=== PATIENT | female | born 1995 | race Two or more races ===

== ENCOUNTER 2023-04-20 14:29 | Outpatient (REF) | payer OTHER, SELFPAY ==
[2023-04-20 15:11] LABS: MANUAL DIFF FLAG NO
[2023-04-20 15:47] LABS: Basophils Percent Auto 0.4 % (0-2); Eosinophils Absolute Auto 0.2 X10*3/uL (0.0-0.4); Eosinophils Percent Auto 2.8 % (0-4); Hematocrit 37.7 % (37.0-47.0); Hemoglobin 12.2 g/dl (12.0-16.0); Imm Gran Abs Auto 0.02 X10*3/uL (0.00-0.03); Imm Gran Pct Auto 0.2 % (0.0-0.4); Lymphocytes Absolute Auto 3.9 X10*3/uL (1.2-4.9); Lymphocytes Percent Auto 46.5 % (20-40); Mean Corpuscular HGB Conc 32.4 g/dl (31.0-35.0); Mean Corpuscular Hemoglobin 28.3 pg (27.0-33.0); Mean Corpuscular Volume 87.5 fL (80.0-98.0); Mean Platelet Volume 9.1 fL (9.4-12.3); Monocytes Absolute Auto 0.7 X10*3/uL (0.1-1.2); Monocytes Percent Auto 7.8 % (2-11); Neutrophils Absolute Auto 3.6 x10*3/uL (2.0-8.3); Neutrophils Percent Auto 42.3 % (45-73); Platelet Count 358 X10*3/uL (160-400); Red Blood Count 4.31 X10*6/uL (4.20-5.50); Red Cell Distribution Width 12.7 % (11.0-16.0); White Blood Count 8.4 X10*3/uL (4.8-10.8)
[2023-04-20 16:01] LABS: Alanine Aminotransferase 23 U/L (0-31); Albumin Level 4.4 g/dL (3.5-5.0); Alkaline Phosphatase 56 U/L (39-117); Anion Gap 15 (12-20); Aspartate Amino Transferase 17 U/L (5-31); Bilirubin Total 0.3 mg/dL (0.0-1.0); Blood Urea Nitrogen 18 mg/dL (9-16); Calcium 9.4 mg/dL (8.4-10.2); Carbon Dioxide 25 mmol/L (22-29); Chloride 104 mmol/L (96-108); Estimated Glomerular Filt Rate > 60; Glucose Random 74 mg/dL (60-115); Potassium 4.5 mmol/L (3.3-5.1); Sodium 139 mmol/L (135-145); Total Protein 8.1 g/dL (6.5-8.0)
[2023-04-20 16:08] LABS: Magnesium 2.2 mg/dL (1.6-2.6); Phosphorus 3.6 mg/dL (2.7-4.5)
[2023-04-20 16:16] LABS: Free T4 (Free Thyroxine) 0.95 ng/dL (0.71-1.85); Thyroid Stimulating Hormone 5.55 uIU/mL (0.32-4.0)
[2023-04-20 16:22] LABS: Vitamin B12 438 pg/mL (200-900)
[2023-04-20 17:18] LABS: Urine Pregnancy NEGATIVE (NEGATIVE)
[2023-04-20 17:19] LABS: Appearance Urine Cloudy; Color Urine Dark Yellow; Glucose Urine UA Negative (Negative); Leukocyte Esterase Urine Trace (Negative); Nitrite Urine Negative (Negative); PH 5.5 (5.0-9.0); Specific Gravity - Urine >= 1.030 (1.005-1.025); UMIC TRIGGER UA YES; UPreg QC Valid YES; Urine Blood Negative (Negative); Urine Ketones Trace mg/dL (Negative); Urine Protein Negative (Neg-Trace)
[2023-04-20 17:53] LABS: Hyaline Casts Urine 0-2 /LPF (0-2); WBC Urine 0-5 /HPF (0-5)
[2023-04-20 17:54] LABS: Bacteria Urine Trace (None Seen); RBC Urine 0-2 /HPF (0-2)
[2023-04-21 07:13] LABS: Syphilis Screen Nonreactive (Nonreactive)
[2023-04-21 07:25] LABS: HBS Num1 1.14 mIU/mL (0-7.99); HBc Num1 0.24 S/CO (0.00-0.79); HBsAGNum1 1.26 S/CO (0.00-0.99); HIV AB/AG Nonreactive (Nonreactive); Hepatitis B Core Antibody Nonreactive (Nonreactive); ~HepC Num1 0.17 S/CO (0.00-0.79); ~Hepatitis B Surface Antibody NONREACTIVE (Nonreactive); ~Hepatitis C Antibody Nonreactive (Nonreactive)
[2023-04-21 10:14] LABS: HBsAGNum2 Reactive; HBsAGNum3 Reactive
[2023-04-21 10:15] LABS: Hepatitis B Surface Antigen Retest CNFM (Negative)
[2023-04-24 12:59] LABS: HBsAG NON-REACTIVE
== END 2023-04-20 14:30 | disposition home or self-care (01) ==
LOC: HO.LAB 14:29
PROVIDERS: Visit Provider Psychiatry & Neurology Psychiatry
DX: Z11.4 Encounter for screening for human immunodeficiency virus [HIV] (principal); F33.2 Major depressive disorder, recurrent severe without psychotic features
CPT/HCPCS: 36415; 80053; 81001; 81025; 82607; 83735; 84100; 84439; 84443; 85025; 86704; 86706; 86780; 86803; 87340; 87389

== ENCOUNTER → 2023-04-23 10:39 | Outpatient (REF) | payer OTHER, SELFPAY ==
--- NOTE | 2023-04-23 10:44 | ECG_ITS ---
Test Reason : r/o arrhythmia Blood Pressure : / mmHG Vent. Rate : 047 BPM Atrial Rate : 047 BPM P-R Int : 140 ms QRS Dur : 086 ms QT Int : 518 ms P-R-T Axes : 025 073 054 degrees QTc Int : 458 ms Sinus bradycardia with sinus arrhythmia Otherwise normal ECG No previous ECGs available Referred By: Olga Chinchilla Electronically Signed By:AURORA CASTRO MD
== END ==
LOC: HO.CARD 10:39
PROVIDERS: Visit Provider Psychiatry & Neurology Psychiatry
DX: F33.2 Major depressive disorder, recurrent severe without psychotic features (principal)
CPT/HCPCS: 93005

== ENCOUNTER → 2023-04-23 10:44 | Outpatient (BNV) | payer OTHER, SELFPAY | PROVIDERS: Visit Provider Internal Medicine Cardiovascular Disease | DX: R00.1 Bradycardia, unspecified (principal) | CPT/HCPCS: 93010 ==

== ENCOUNTER 2023-04-30 08:00 | Outpatient (RCR) | payer OTHER, SELFPAY ==
[2023-04-17 12:22] VITALS: BP 99/69; PULSE 61; TEMP 36.7
[2023-04-17 12:28] VITALS: BMI 33.3
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
[2023-04-20 06:25] LABS: Amphetamine Screen Urine Not Detected (Not Detect); Barbiturates, Urine Not Detected (Not Detect); Benzodiazepines Screen Urine Not Detected (Not Detect); Cannabinoid Screen Urine POSITIVE (Not Detect); Cocaine Screen Urine POSITIVE (Not Detect); Fentanyl, urine Not Detected (Not Detect); Opiate Screen Urine Not Detected (Not Detect); Phencyclidine Screen Urine POSITIVE (Not Detect)
--- NOTE | 2023-04-20 12:14 | PC.ADMIT ---
Patient is a 27 year old female who was referred to [facility] by Ирина Wen [facility]. She reportely has had 2 inpatient level of cares in December and January 2023 d/t increased depression and anxiety with SI. Patient has a history of substance use including cocaine IV, opiates, and ETOH use. She reports she has relapsed since she has been out of the hospital and reports most recent relapse on cocaine (snorting it) a few days prior to 04/17/23. Patient's PAK done on 04/17/23 was positive for cocaine, PCP, and [place]. I reviewed the results with her and she stated she did not know what PCP was. Education regarding PCP given to patient. Patient upset as she stated that the cocaine she used must of had PCP in it and she did not know, stated she could of . She is planning on abstaining from cocaine. We called to set up a legal recovery specialist for patient with [facility] in my office today thus Felipe from [facility] will be meeting with patient at noon on 04/21/23. Patient is alert and oriented x4. Calm and cooperative. Reports passive SI, denied any plans of intent to kill herself. Patient given a copy of her safety plan if needed. Medicatons reconciled with patient, patient's pharmacy, and discharge paperwork. Patient discussed changes that were made with her medications by her outside prescriber. She reports Seroquel was help d/t prolongation of QT on EKG and her Trazodone was increased to 100 mg Q HS.
--- NOTE | 2023-04-20 20:09 | P.PNPSP_ITS ---
Subjective Subjective Date of Service: 04/20/23 Reason For Visit: PTSD,severe depression,anxiety,insomnia Interim History: Patient reports having an uneventful weekend. Her UDS from Thursday was positive for PCP, cocaine and THC. Another urine was taken this AM by clinician. She has not had a chance to get her lab work drawn yet. She agrees to go after the program today. Aside from the medications she reported on Thursday, she is also recently started on Buspar through [facility] and also had been on Seroquel, but had overdosed on Seroquel and now the medication is being withheld since being at the hospital in [facility] due to prolonged QTc, and can not be restarted on it until QTc normalizes. She discusses treatment at [facility], she is waiting for therapy referral. She reports having had bad experiences at [facility] and [facility] in the past so only willing to work [facility] for now. Medication Compliance: Yes Side effects from medications: No Attending Groups: Yes Review of Systems Acute medical concerns: No Mental Status Exam Mental Status Exam Narrative: Alert, oriented, in no acute distress. Groomed. Calm, cooperative, forthcoming. Eye contact good. Mood depressed, affect reactive, subdued. Normal speech. Thought process linear, coherent without FOI or LOUISA. Thought content relevant to stressors, feelings of helplessness, hopelessness endorsed. Denies SI or HI, intention, urge or plan. Denies AH or VH. No evidence of perceptual disturbance. Cognition grossly intact. Sensorium clear. Insight and judgment fair. Diagnostics Vital Signs (24Hr): BMI result Body Mass Index 33.3 Labs Labs: Laboratory Results - last 48 hr 04/17/23 14:05 Urine Opiates Screen Not Detected Urine Fentanyl Screen Not Detected Ur Barbiturates Screen Not Detected Ur Phencyclidine Scrn POSITIVE H Ur Amphetamines Screen Not Detected U Benzodiazepines Scrn Not Detected Urine Cocaine Screen POSITIVE H U Marijuana (THC) Screen POSITIVE H Assessment & Plan Assessment & Plan (1) Depressive disorder: Status: Acute Code(s): F32.A - Depression, unspecified (2) Other mixed anxiety disorders: Status: Acute Code(s): F41.3 - Other mixed anxiety disorders (3) Complex posttraumatic stress disorder: Status: Acute Code(s): F43.10 - Post-traumatic stress disorder, unspecified (4) Phencyclidine (PCP) use disorder, moderate: Status: Acute Code(s): F16.20 - Hallucinogen dependence, uncomplicated (5) Polysubstance (including opioids) dependence with physiological dependence: Status: Acute Code(s): F19.20 - Other psychoactive substance dependence, uncomplicated (6) Alcohol abuse, in remission: Status: Acute Code(s): F10.11 - Alcohol abuse, in remission Plan start topiramate 25 mg tonight, then increase to 50 mg QHS to target sleep, anxiety, cravings discontinue clonidine start prazosin 1 mg QHS, will likely increase to BID dosing increase Buspar from 30 mg/d (15 mg BID) to 45 mg/d - either 15 mg TID, or 22.5 mg (1.5 tablets of 15 mg) BID continue Effexor XR 150 mg qd continue trazodone 100 mg QHS continue holding Seroquel due to QTc prolongation pending EKG routine pending lab work - including routine labs, RPR, HIV, Hepatitis panels continue to monitor Patient educated on: diagnosis, medication risk/benefits and substance abuse Informed Consent: understands Reason for contiued partial hosp. stay Substantial Risk for: harm to self, inability to function, rapid decompensation and med/psych decompensation Certification I certify that partial hospital treatment is medically necessary due to the symptoms and problems resulting from the patient's mental illness and the failure to treat the patient at the partial hospital level of care would likely result in the patient requiring inpatient psychiatric care which could not be prevented at a less intensive level of care. Total time managing care of this patient today __30__ minutes. Discharge Plan Discharge Attending provider: Olga Chinchilla Additional Instructions: Sonya has an intake appointment for OP therapy on May 06, 2023 at 10 AM with Yvette Allison, this meeting will be in person at the [facility]. Sonya has a med management meeting on May 27, 2023 at 9 AM in Person with Dr. Marek Hale. Medications: New topiramate 50 mg tablet 50 mg PO .QHS Qty: 20 0RF prazosin 1 mg capsule 1 mg PO QPM Qty: 20 0RF buspirone 15 mg tablet 15 mg PO TID Qty: 30 0RF Continued venlafaxine 150 mg capsule,extended release 24hr 150 mg PO DAILY hydroxyzine HCl 50 mg Tablet 50 mg PO TID PRN (Reason: Anxiety) trazodone 100 mg Tablet 100 mg PO BEDTIME methadone 10 mg/mL Concentrate 60 mg PO DAILY naproxen 500 mg Tablet 500 mg PO BID Discontinued clonidine HCl 0.1 mg tablet 0.1 mg PO TID PRN (Reason: Anxiety) prazosin 1 mg Capsule 1 mg PO BEDTIME buspirone 10 mg tablet 10 mg PO BID Stand Alone Forms: Patient Portal Discharge page
[2023-04-22 11:48] VITALS: BP 99/70; PULSE 60
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
[2023-04-22 13:44] LABS: Amphetamine Screen Urine Not Detected (Not Detect); Barbiturates, Urine Not Detected (Not Detect); Benzodiazepines Screen Urine Not Detected (Not Detect); Cannabinoid Screen Urine POSITIVE (Not Detect); Cocaine Screen Urine POSITIVE (Not Detect); Fentanyl, urine Not Detected (Not Detect); Opiate Screen Urine Not Detected (Not Detect); Phencyclidine Screen Urine POSITIVE (Not Detect)
--- NOTE | 2023-04-22 15:45 | HO.PHP ---
At 10:45 am, food writer checked in with pt to address several areas of concern including her transportation issues. Pt arrived to program at 9:45am this morning, 15 minutes after the cut-off time. Pt states she is picked-up by PT1 at 8:30 am and is brought to [facility] for her methadone dose, the PT1 waits for her while she gets it then it brings her to [facility]. Pt states the process takes a long time depending on the wait for her dose. Pt states she will call PT1 to ask them to pick her up at 8 am or 8:15 instead. Pt is aware her late arrival interferes with her ability to engage in programming effectively. Pt's transportation home was also discussed. Pt states she has a ride home today and tomorrow but after that she will need to set up PT1 or find an alternative. Pt states she is currently trying to figure something out . Pt's sedated state while in group was also discussed, as reported by PHP staff. Pt acknowledged she is on a lot of medication in the morning as well as on methadone. States she has her regular daily meds but also needs to take her 'as-needed' meds in the morning because of her anxiety. Pt denied the as-needed meds for anxiety were contributing to her sedation and declined wanting to discuss with the if her meds were too strong in the morning. Pt encouraged to stay awake for groups, asked how [facility] can support this. Pt stated she will try to get better sleep at night. Pt's processing time and reaction time during this meeting were delayed/slowed.
--- NOTE | 2023-04-22 16:39 | HO.PHP ---
PHP staff member faxed over a referral to [facility] for OP therapy and a med provider for Crystal. PHP staff member is awaiting a response.
--- NOTE | 2023-04-22 16:40 | HO.PHP ---
[facility] staff member faxed over a referral twice to [facility] for OP therapy and med management for Crystal. Neither fax went through. Attempted a third fax awaiting to see if it was successful.
[2023-04-23 09:29] VITALS: BP 100/74; PULSE 67
--- NOTE | 2023-04-23 11:39 | PC.NURSE ---
8639 Patient reports upper abdominal pain. Stated she had this before. VSS 100/74 P 67. Reminded patient that she has an EKG ordered. She stated she would go tomorrow morning. I encouraged her to go today.
--- NOTE | 2023-04-23 12:17 | PC.NURSE ---
Reviewed preliminary EKG results with Dr Chinchilla done on 04/23/23. Sinus bradycardia with sinus arrhythmia Vent rate 047 BPM. No new orders.
--- NOTE | 2023-04-23 19:06 | HO.PHP ---
Client's case has been opened and reviewed in treatment team.
--- NOTE | 2023-04-24 08:07 | HO.PHP ---
Sonya informed PHP principal administrative clerk, Anabell, that she will not be in attendance to program, due to not feeling well. Anabell disclosed she reported she is safe and will be here on Thursday.
--- NOTE | 2023-04-27 09:41 | HO.PHP ---
[facility] staff member reached out to Sonya due to her not arriving to program or contacting to state she will be absent for the day. [facility] staff member was unable to get a hold of Sonya or leave a VM due to her mailbox being full. [facility] staff then contacted the emergency contact, who is her mother, and left a VM for her asking to return the phone call to do a safety check. If we do not hear from the mother, we will move forward with a wellness check.
--- NOTE | 2023-04-27 10:15 | HO.PHP ---
[facility] staff member received a phone call from Sonya's mother stating that she has not heard from Sonya today but had seen her yesterday, in which she had mentioned that she wasn't going to have transportation to the program. Sonya's mother voiced that she will reach out to her and have her contact the program as well. [facility] staff member was receptive.
--- NOTE | 2023-04-27 14:21 | HO.PHP ---
[facility] staff member reached out to Sonya around 10:40 AM to review why she did not show up to program. Sonya disclosed that she thought we were off due to the holiday and her PT1 taxi driver supervisor was unable to bring her. [facility] staff was receptive and assessed for safety. Sonya reported no safety concerns or SI,plan or intent. Sonya will be in attendance to program tomorrow.
[2023-04-28 13:11] LABS: Amphetamine Screen Urine Not Detected (Not Detect); Barbiturates, Urine Not Detected (Not Detect); Benzodiazepines Screen Urine Not Detected (Not Detect); Cannabinoid Screen Urine Not Detected (Not Detect); Cocaine Screen Urine POSITIVE (Not Detect); Fentanyl, urine Not Detected (Not Detect); Opiate Screen Urine Not Detected (Not Detect); Phencyclidine Screen Urine POSITIVE (Not Detect)
--- NOTE | 2023-04-28 13:16 | HO.PHP ---
[facility] staff member received a phone call from [facility] with Sonya's appointment at the [facility] location. Sonya has an intake appointment for OP therapy on May 06, 2023 at 10 AM with Yvette Allison, this meeting will be in person. Sonya has a med management meeting on May 27, 2023 at 9 AM [address] Person [address] Dr. Marek Hale.
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
--- NOTE | 2023-04-28 15:29 | HO.PHP ---
During the 1:00pm stress management group Pt repeatedly fell asleep while sitting up in her chair and while in odd positions, eg. while uncapping her pen, pen cap remaining in her mouth for several minutes while sleeping causing peers to show concern. Pt presented as under the influence of a sedative substance as evident by her nodding off mid-sentence, her catatonic-like positions while in a sleep-like state and in those fixed positions for extended periods of time 5 to 10 minutes with arm mid-air. Pt was unable to remain alert despite many prompts and attempts to engage and keep engaged. Pt's state was distracting to peers and interfered with the group process, causing several delays and interruptions, eg. pt would awaken briefly and move her papers around and begin to speak out of turn and not in regards to group content (asking peer a personal question, answering a question she thought she heard, incoherent stating we are on a break ). Situation will be brought up with team to assess plan moving forward.
--- NOTE | 2023-04-29 17:26 | HO.PHP ---
[facility] staff member met with Sonya after group 3 to further explore her statement around having SI without a plan or intent. Sonya had mentioned that she always has those thoughts but would never do that to her mother. Sonya expressed having no plan or intent. Sonya was provided with a list of crisis numbers if her SI increases or if she needs additional support after hours. Sonya was receptive. Sonya asked PHP staff about discharge. PHP staff member stated that she will be discharging and it is our recommendation that she goes to a TSS placement. Sonya declined a referral to TSS and stated she does not want to sleep overnight and would prefer a program similar to this. PHP staff member informed her that there is [facility] and to engage in that program she is not allowed to engage in substance use. Sonya expressed that she hasn't. [facility] staff disclosed to Sonya that her previous drug screen came back positive for PCP and Cocaine, in which the clinician explored why she believes that would be since she mentioned she used a week ago. Sonya noted that she must have confused her dates. Sonya continued to express that she is safe and will be in program tomorrow. [facility] staff member was receptive.
--- NOTE | 2023-04-30 23:18 | P.PNPSP_ITS ---
Subjective Subjective Date of Service: 04/30/23 Reason For Visit: PTSD,severe depression,anxiety,insomnia Interim History: Patient seen for follow-up, anticipating discharge at the end of program today.? Reports no acute issues or concerns. She has been tolerating medications - buspirone, venlafaxine, prazosin, trazodone, topiramate. Denies any adverse effects. She continues to actively use, was again positive for PCP and cocaine, and agrees to follow up with substance abuse treatment in the community. She agreed to referral to [facility] and is scheduled for an intake on 05/06. Mood is stable. Denies any hopelessness or SI. Denies thoughts of harming self or others at this time. Denies any aggressive ideation or HI. Denies any paranoia or AH or VH. Sleep, appetite, energy stable. Reviewed findings from routine EKG. Test Reason : r/o arrhythmia Blood Pressure : / mmHG Vent. Rate : 047 BPM Atrial Rate : 047 BPM P-R Int : 140 ms QRS Dur : 086 ms QT Int : 518 ms P-R-T Axes : 025 073 054 degrees QTc Int : 458 ms Sinus bradycardia with sinus arrhythmia Otherwise normal ECG No previous ECGs available Bradycardia due to ongoing use of clonidine, which patient has continued on despite this being discontinued at our last appointment. I have pointed out the bradycardia and agrees to stop and continue with prazosin at night for sleep. Given Qtc is wnl, patient may resume Seroquel at low dose 50 mg for now and to follow-up with outpatient provider. Patient has psych provider appointment on May 27, [address] Marek Hale. Medication Compliance: Yes Side effects from medications: No Attending Groups: Yes Review of Systems Acute medical concerns: No Mental Status Exam Mental Status Exam Narrative: Alert, oriented, in no acute distress. Groomed. Calm, cooperative, forthcoming. Eye contact good. Mood ok , affect reactive, subdued. Normal speech. Thought process linear, coherent without FOI or LOUISA. Thought content relevant to stressors, feelings of helplessness, hopelessness endorsed. Denies SI or HI, intention, urge or plan. Denies AH or VH. No evidence of perceptual disturbance. Cognition grossly intact. Sensorium clear. Insight and judgment fair. Diagnostics Vital Signs (24Hr): BMI result Body Mass Index 33.3 Assessment & Plan Assessment & Plan (1) Depressive disorder: Status: Acute Code(s): F32.A - Depression, unspecified (2) Other mixed anxiety disorders: Status: Acute Code(s): F41.3 - Other mixed anxiety disorders (3) Complex posttraumatic stress disorder: Status: Acute Code(s): F43.10 - Post-traumatic stress disorder, unspecified (4) Phencyclidine (PCP) use disorder, moderate: Status: Acute Code(s): F16.20 - Hallucinogen dependence, uncomplicated (5) Polysubstance (including opioids) dependence with physiological dependence: Status: Acute Code(s): F19.20 - Other psychoactive substance dependence, uncomplicated (6) Alcohol abuse, in remission: Status: Acute Code(s): F10.11 - Alcohol abuse, in remission Plan [facility]charge from [facility] Continue with current medication regime Will defer further medication management to outpatient provider Patient to continue treatment as per dispo plan She still has medications currently, patient can call back if she needs refills prior to psych appointment on 05/27. Patient educated on: diagnosis, medication risk/benefits and substance abuse Informed Consent: understands Reason for contiued partial hosp. stay Substantial Risk for: stable for discharge Certification I certify that partial hospital treatment is medically necessary due to the symptoms and problems resulting from the patient's mental illness and the f ailure to treat the patient at the partial hospital level of care would likely result in the patient requiring inpatient psychiatric care which could not be prevented at a less intensive level of care. Total time managing care of this patient today __30__ minutes. Discharge Plan Discharge Attending provider: Olga Chinchilla Additional Instructions: Sonya has an intake appointment for OP therapy on May 06, 2023 at 10 AM with Yvette Allison, this meeting will be in person at the [facility] location. Sonya has a med management meeting on May 27, 2023 at [address] Person [address] Dr[address] Marek Hale. Medications: Continued trazodone 100 mg Tablet 100 mg PO BEDTIME methadone 10 mg/mL Concentrate 60 mg PO DAILY naproxen 500 mg Tablet 500 mg PO BID prazosin 1 mg capsule 1 mg PO QPM Qty: 14 0RF venlafaxine 150 mg capsule,extended release 24hr 150 mg PO DAILY Qty: 14 0RF buspirone 15 mg tablet 15 mg PO TID Qty: 30 0RF Changed topiramate 50 mg tablet 50 mg PO BEDTIME Qty: 14 0RF Discontinued clonidine HCl 0.1 mg tablet 0.1 mg PO TID PRN (Reason: Anxiety) prazosin 1 mg Capsule 1 mg PO BEDTIME hydroxyzine HCl 50 mg Tablet 50 mg PO TID PRN (Reason: Anxiety) buspirone 10 mg tablet 10 mg PO BID Stand Alone Forms: Patient Portal Discharge page
--- NOTE | 2023-05-10 00:17 | PM.EVENT ---
Event Note Date of Service: 05/08/23 Event Note: Patient left message with program requesting refills on her medications. Her med provider appointment is on May 27. Time Spent With Patient Time: Total time managing care of this patient today _10___ minutes.
== END 2023-04-30 23:59 | disposition home or self-care (01) ==
LOC: HO.PHPA 08:00
PROVIDERS: Visit Provider Psychiatry & Neurology Psychiatry
DX: F32.A Depression, unspecified (principal); F43.10 Post-traumatic stress disorder, unspecified; F41.3 Other mixed anxiety disorders; F19.20 Other psychoactive substance dependence, uncomplicated; F16.20 Hallucinogen dependence, uncomplicated; F10.11 Alcohol abuse, in remission; Z79.899 Other long term (current) drug therapy
CPT/HCPCS: 80307; 90791; 90853

== ENCOUNTER → 2023-04-30 08:00 | Outpatient (BNV) | payer OTHER, SELFPAY | PROVIDERS: Visit Provider Psychiatry & Neurology Psychiatry | DX: F32.A Depression, unspecified (principal); F41.3 Other mixed anxiety disorders; F43.10 Post-traumatic stress disorder, unspecified; F16.20 Hallucinogen dependence, uncomplicated; F19.20 Other psychoactive substance dependence, uncomplicated; F10.11 Alcohol abuse, in remission | CPT/HCPCS: 99213; 99214; 99499 ==